=== PATIENT | male | born 1965 | race Caucasian/White ===

== ENCOUNTER → 2018-03-16 | Outpatient (CLI) | payer MEDICARE, BC ==
[~2018-03-16] MED LIST: DOCU-416 PO; LOR5 PO; OND4 PO; OXYC-854 PO
--- NOTE | 2018-03-16 16:06 | RADIOLOGY IMAGING REPORT ---
[place] [facility] [place]: Abdullahi Philip : 1965 MR: [id number] V: [id number] EXAM DATE: ORDERING PHYSICIAN: MALVIN RCIK TECHNOLOGIST: Location: [facility] Patient: Abdullahi Philip : 1965 Visit/Account:[id number] Date of Sevice: 03/16/2018 Examination: Right knee CT arthrogram HISTORY: Knee pain. TECHNIQUE: Transaxial computed tomography images are obtained of the right knee with intra-articular iodinated contrast. Multiplanar reformatted images were created in the coronal and sagittal planes. One of the following dose optimization techniques was utilized in the performance of this exam: Autom ated exposure control; adjustment of the mA and/or kV according to the patient's size; or use of an i terative reconstruction technique. Specific details can be referenced in the facility's radiology C T exam operational policy. COMPARISON: 11/04/2017. FINDINGS: Examination of the medial compartment demonstrates abnormal morphology of the inner margin of the bod y and posterior horn of the medial meniscus. Appearance would favor interval medial meniscal debridem ent when compared to the prior study. Clinical correlation is necessary. If there is been no prior burns rgery, appearance would favor progression of a complex medial meniscal tear. Best appreciated on the coronal reconstructed images, there has been progression of the chondrosis involving the weightbearin g surfaces of the medial femoral condyle and the medial tibial plateau. A condylar osteophyte is agai n seen involving the central weightbearing surface of the condyle. Examination of the lateral compartment demonstrates a truncated morphology of the inner margin of the body of the lateral meniscus. No imbibition of contrast is seen into the meniscus. Was there a debri maryann of the lateral meniscal body? Articular surfaces appear maintained. Examination of the patellofemoral compartment demonstrates extensive patellar chondrosis most pronoun nani at the median ridge. There is shallow trochlear chondrosis. A few calcifications are seen along the anterior and posterior margin of the joint space. These may r epresent small loose bodies within several joint recesses. Contrast extends into a lobulated poplitea l cyst which contains several joint bodies. There is soft tissue swelling about the knee most pronoun nani involving the prepatellar and infrapatellar subcutaneous tissues. No definitive fluid-filled burs a. IMPRESSION: 1. Appearance most compatible with interval debridement of the inner margin of the medial meniscal adriane dy and the posterior horn. Correlate with operative history. If there has been no interval meniscal s urgery, appearance would favor a complex medial meniscal tear which has progressed since the prior ex am. 2. Suspected inner margin debridement of the body of the lateral meniscus. Again, clinical correlatio n is necessary. 3. 3 compartment osteoarthritis of the right knee with progression of chondrosis in the medial compar tment since the prior study. 4. Popliteal cyst. 5. Subcutaneous edema about the knee most pronounced in the prepatellar and infrapatellar soft tissue s. Report Dictated By: Rian Gtz at 03/16/2018 3:05 PM Report E-Signed By: Rian Gtz at 03/16/2018 4:02 PM WSN:[id number]
== END ==
LOC: CT 00:40
PROVIDERS: ATTEND Orthopaedic Surgery
DX: M17.11 Unilateral primary osteoarthritis, right knee (principal); M71.21 Synovial cyst of popliteal space [Baker], right knee

== ENCOUNTER → 2018-04-21 | Outpatient (CLI) | payer MEDICARE, BC ==
--- NOTE | 2018-04-21 13:39 | RADIOLOGY IMAGING REPORT ---
[place] [facility] [place] NAME: Abdullahi Philip : 1965 MR: [id number] V: [id number] EXAM DATE: ORDERING PHYSICIAN: MALVIN RICK TECHNOLOGIST: Location: [facility] Patient: Abdullahi Philip : 1965 Visit/Account:[id number] Date of Sevice: 04/21/2018 Exam type: VENOUS DOPP LOW RIGHT EXTREMIT History: Right leg pain and swelling, history of right meniscus surgery with three injury Comparison: None. Findings: Right lower extremity veins were imaged including the right common femoral vein, greater saphenous ve in, superficial femoral vein, profunda femoral vein, popliteal vein, posterior tibial vein, peroneal vein, anterior tibial vein revealing no evidence of intraluminal thrombi. The veins were compressibl e and demonstrated augmentation. Incidentally noted are two soft tissue fluid collections along the medial aspect of the right knee on e measures 4.3 x 2.2 cm in transverse dimension. The collection was too long to be measured sonograp hically. There appear to be some internal echogenic debris which may represent hematoma. A second collection also along the medial aspect of the right knee measured 2 x 3.4 cm in transverse dimension IMPRESSION: 1. No sonographic evidence DVT involving the right lower extremity veins There are two fluid collections along the medial aspect of the right knee likely representing both li quefied and partially solid hematomas Report Dictated By: Destiny Roberson MD at 04/21/2018 1:32 PM Report E-Signed By: Destiny Roberson MD at 04/21/2018 1:36 PM WSN:[id number]
== END ==
LOC: US 10:44
PROVIDERS: ATTEND Orthopaedic Surgery
DX: M79.604 Pain in right leg (principal); M79.89 Other specified soft tissue disorders

== ENCOUNTER 2019-02-26 16:10 | Emergency (ER) | payer MEDICARE, BC ==
[2019-02-26] MEDS ORDERED: MELO-207 PO (16:20)
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
[2019-02-26] MEDS ORDERED: ONDANSETRON 4 MG/2 ML VIAL IVP ONE (16:30)
[2019-02-26] MEDS ORDERED: fentaNYL CITR 100 MCG/2 ML AMP IVP ONE (16:30)
[2019-02-26] MEDS ORDERED: PROPOFOL EMUL 10MG/ML 20 ML VL IVP ONE (16:55)
[2019-02-26] MEDS ORDERED: KETAMINE HCL-NS 50 MG/5 ML SYR IVP ONE (16:55)
--- NOTE | 2019-02-26 17:04 | RADIOLOGY IMAGING REPORT ---
FACILITY: [facility] [place] PATIENT NAME: Abdullahi Philip : 1965 MR: [id number] V: [id number] EXAM DATE: ORDERING PHYSICIAN: CHANTAL VILLARREAL TECHNOLOGIST: Location: [facility] Patient: Abdullahi Philip : 1965 Visit/Account:[id number] Date of Sevice: 02/26/2019 EXAMINATION: Right shoulder 3 views. HISTORY: Shoulder pain. COMPARISON: None FINDINGS: Dislocation at the right glenohumeral joint. The humeral head is displaced inferior and anterior rela tive to the bony glenoid. No visualized fracture. There are underlying chronic degenerative changes at the glenohumeral joint. The proximal humerus judi ears intact. Right clavicle appears intact. Normal alignment at the acromioclavicular joint. Visualized upper right ribs appear intact. IMPRESSION: Anterior/inferior dislocation at the right glenohumeral joint, without visualized fractu re. Report Dictated By: Willem Byrd MD at 02/26/2019 4:55 PM Report E-Signed By: Willem Byrd MD at 02/26/2019 5:00 PM WSN:[id number]
[2019-02-26 17:30] VITALS: BP 130/92
--- NOTE | 2019-02-26 17:33 | RADIOLOGY IMAGING REPORT ---
FACILITY: [facility] [place] PATIENT NAME: Abdullahi Philip : 1965 MR: [id number] V: [id number] EXAM DATE: ORDERING PHYSICIAN: CHANTAL VILLARREAL TECHNOLOGIST: [place] [facility] [place] Patient: Abdullahi Philip : 1965 Visit/Account:[id number] Date of Sevice: 02/26/2019 Exam type: SHOULDER MIN 2 VIEWS RIGHT History: post reduction Comparison: Earlier same day. Findings: There is adequate reduction of the previously described right shoulder dislocation. Glenohumeral farrukh nt aligns appropriately. Degenerative changes are noted involving the right glenohumeral joint. AC joint also demonstrates degenerative changes. No definitive fracture. Increased interstitial markings the right lung are noted not completely evaluated. IMPRESSION: 1. Adequate reduction of the previously described right shoulder dislocation. Report Dictated By: Dariel Ramirez MD at 02/26/2019 5:27 PM Report E-Signed By: Dariel Ramirez MD at 02/26/2019 5:29 PM WSN:[id number]
== END 2019-02-26 18:00 | disposition home or self-care (01) ==
LOC: ER 16:14
DX: S43.004A Unspecified dislocation of right shoulder joint, initial encounter (principal)
CPT/HCPCS: 23650; 73030; 96374; 96375; 99156; 99285; J2405; J2704; J3010; J3490; L3982; A4565